=== PATIENT | female | born 1995 | race Caucasian/White ===

== ENCOUNTER 2022-06-11 13:30 | Emergency (ER) | payer MEDICAID ==
[~2022-06-11] VITALS: Ht 177.8 cm; Wt 102.0 kg
[2022-06-11] MEDS ORDERED: DIPHENHYDRAMINE 50MG/ML VIAL IM ONE (14:45)
[2022-06-11] MEDS ORDERED: SODIUM CHLORIDE 0.9% 1,000 ML IV ONE (14:45)
[2022-06-11] MEDS ORDERED: LORAZEPAM 2MG/ML CPJ IM ONE (14:45)
[2022-06-11] MEDS ORDERED: HALOPERIDOL LACTATE 5MG/ML VIAL IM ONE (14:45)
[2022-06-11 15:55] LABS: BASOPHILS % 0.6 % (0.0-2.0); EOSINOPHILS % 0.3 % (0.0-5.0); HEMATOCRIT. 36.7 % (36.0-48.0); HEMOGLOBIN. 12.5 g/dL (12.0-16.0); MEAN CORPUSCULAR HEMOGLOBIN 29.4 pg (28.0-32.0); MEAN CORPUSCULAR VOLUME 86.4 fL (81.0-99.0); MEAN PLATELET VOLUME 8.6 fl (7.4-10.4); MONOCYTES % 6.9 % (2.0-8.0); NEUTROPHILS % 77.2 % (40.0-76.0); PLATELET 250 x1000/uL (130-400); RED BLOOD CELL COUNT 4.25 mill/uL (4.2-5.4)
[2022-06-11 15:59] LABS: CHLORIDE 108 mEq/L (98-107)
[2022-06-11 16:09] LABS: ETHANOL BLOOD < 10 mg/dL
[2022-06-11 16:28] LABS: HCG SCREEN NEGATIVE
[2022-06-11 21:38] LABS: CLARITY URINE CLOUDY (CLEAR); COLOR URINE ORANGE (YELLOW); KETONES URINE 2+ (NEGATIVE); LEUKOCYTE ESTERASE URINE 3+ (NEGATIVE); NITRITE URINE NEGATIVE (NEGATIVE); OCCULT BLOOD URINE 3+ (NEGATIVE); PROTEIN URINE 1+ (NEGATIVE); SPECIFIC GRAVITY URINE 1.016 (1.005-1.030)
[2022-06-11 21:54] LABS: *AMPHETAMINES SCREEN URINE NEGATIVE (NEGATIVE); *BARBITURATES SCREEN URINE NEGATIVE (NEGATIVE); *BENZODIAZEPINES SCREEN URINE NEGATIVE (NEGATIVE); *COCAINE SCREEN URINE NEGATIVE (NEGATIVE); CANNABINOID URINE SCREEN NEGATIVE (NEGATIVE); METHADONE URINE SCREEN NEGATIVE (NEGATIVE); OPIATES URINE SCREEN NEGATIVE (NEGATIVE); PHENCYCLIDINE URINE SCREEN NEGATIVE (NEGATIVE)
[2022-06-12] MEDS: OLANZAPINE 5MG TABLET ODT PO SCH ×2 (10:46→18:27)
[2022-06-12] MEDS ORDERED: LORAZEPAM 0.5MG TABLET PO ONE (16:15)
[2022-06-12] MEDS: TRAZODONE HCL 50MG TABLET PO SCH (23:47)
[2022-06-13] MEDS: OLANZAPINE 5MG TABLET ODT PO SCH ×2 (09:00→17:00)
[2022-06-13] MEDS ORDERED: HALOPERIDOL LACTATE 5MG/ML VIAL IM ONE (13:30)
[2022-06-13] MEDS ORDERED: LORAZEPAM 2MG/ML CPJ IV ONE (13:30)
[2022-06-13] MEDS ORDERED: LORAZEPAM 2MG/ML CPJ IV NR (18:00)
[2022-06-13] MEDS ORDERED: HALOPERIDOL LACTATE 5MG/ML VIAL IM NR (18:00)
[2022-06-13] MEDS: TRAZODONE HCL 50MG TABLET PO SCH (21:00)
[2022-06-14] MEDS: OLANZAPINE 5MG TABLET ODT PO SCH (09:11)
[2022-06-14] MEDS ORDERED: SERTRALINE HCL 50MG TABLET PO SCH (11:15)
[2022-06-14] MEDS ORDERED: LORAZEPAM 2MG/ML CPJ IM ONE (13:15)
[2022-06-14] MEDS ORDERED: HALOPERIDOL LACTATE 5MG/ML VIAL IM ONE (13:15)
[2022-06-14] MEDS ORDERED: MIRTAZAPINE 15MG TABLET PO SCH (21:00)
[2022-06-14] MEDS ORDERED: ARIPIPRAZOLE 5MG TABLET PO SCH (21:00)
[2022-06-15 02:20] VITALS: BP 116/65
== END 2022-06-15 02:57 ==
LOC: ER 14:26
DX: F23 Brief psychotic disorder (principal); R26.9 Unspecified abnormalities of gait and mobility; Z20.822 Contact with and (suspected) exposure to COVID-19; Z75.1 Person awaiting admission to adequate facility elsewhere
CPT/HCPCS: 36415; 80053; 80305; 80307; 80320; 80329; 81003; 84703; 85025; 87086; 87426; 96360; 96361; 96372; 99285; C9803; J1200; J1630; J2060; J7030; Z7610; G0480